=== PATIENT | male | born 1945 | race Caucasian/White ===

== ENCOUNTER 2021-06-10 10:14 | Inpatient (IN) ==
[2021-06-10] MEDS ORDERED: Ondansetron 4 MG/2 ML VIAL IVP PRN (16:27)
[2021-06-10] MEDS ORDERED: Ipratropium/Albuterol Neb 3 ML IH PRN (16:30)
[2021-06-10] MEDS ORDERED: Nicotine 2 MG GUM BC PRN (16:37)
[2021-06-10] MEDS ORDERED: Piperacillin/Tazobactam 3.375 GM in 0.9 % Sodium Chloride Mini Bag 100 ML IVPB ONE (17:00)
[2021-06-10] MEDS: Ipratropium/Albuterol Neb 3 ML IH SCH ×3 (19:49→22:59)
[2021-06-10] MEDS: Budesonide/Formoterol 80/4.5 1 PUFF INH IH SCH (19:49)
[2021-06-10] MEDS: Acetaminophen 325 MG TABLET PO PRN (20:40)
[2021-06-10] MEDS: Gabapentin 300 MG CAPSULE PO SCH (20:40)
[2021-06-10] MEDS: Melatonin 3 MG TABLET PO PRN (20:42)
[2021-06-10] MEDS: diazePAM 5 MG TABLET PO PRN (20:42)
[2021-06-10] MEDS: Piperacillin/Tazobactam 3.375 GM in 0.9 % Sodium Chloride Mini Bag 100 ML IVPB SCH (23:30)
[2021-06-11] MEDS: Ipratropium/Albuterol Neb 3 ML IH SCH ×6 (03:49→23:42)
[2021-06-11 05:05] LABS: Red Cell Distribution Width 13.7 % (11.5-14.5)
[2021-06-11 05:07] LABS: Basophils % 0.1 %; Hematocrit 41.4 % (37.5-50.1); Hemoglobin 13.5 g/dL (12.9-16.9); Immature Granulocytes % 2.6 % (0-4); Lymphocytes # 0.7 K/mcL (0.6-4.6); Lymphocytes % 2.2 %; Mean Corpuscular HGB Conc 32.6 g/dL (31.6-35.5); Mean Corpuscular Hemoglobin 31.4 pg (28.0-33.3); Mean Corpuscular Volume 96.3 fL (83.0-100.0); Mean Platelet Volume 9.6 fL (9.4-12.4); Monocytes # 1.3 K/mcL (0.0-1.3); Monocytes % 4.3 %; Platelet Count 285 K/mcL (140-400); Segmented Neutrophils % 90.8 %
[2021-06-11] MEDS: *HR* Enoxaparin 40 MG/0.4 ML SYRINGE SQ SCH (05:11)
[2021-06-11 05:23] LABS: BUN/Creatinine Ratio 44 (6-26); Blood Urea Nitrogen 25 mg/dL (8-23); Calcium 8.6 mg/dL (8.6-10.3); Carbon Dioxide 29 mEq/L (23-29); Chloride 108 mEq/L (98-107); Glucose 139 mg/dL (70-105); Magnesium 1.9 mg/dL (1.6-2.6); Osmolality,Calculated 303 (280-300); Phosphorous 3.6 mg/dL (2.7-4.5); Sodium 143 mEq/L (136-145); eGFR For African Americans > 60 (> 60); eGFR For Non-African Americans > 60 (> 60)
[2021-06-11 05:28] LABS: Neutrophils # 28.2 K/mcL (1.6-8.9)
[2021-06-11 05:46] LABS: Platelet Estimate Normal (Normal)
[2021-06-11] MEDS: Budesonide/Formoterol 80/4.5 1 PUFF INH IH SCH ×2 (08:05→20:48)
[2021-06-11] MEDS: Aspirin Enteric Coated 81 MG Tablet PO SCH (09:13)
[2021-06-11] MEDS: Piperacillin/Tazobactam 3.375 GM in 0.9 % Sodium Chloride Mini Bag 100 ML IVPB SCH ×2 (09:13→22:23)
[2021-06-11] MEDS: Gabapentin 300 MG CAPSULE PO SCH ×3 (09:18→21:30)
[2021-06-11] MEDS: Nicotine 14 MG PATCH.TD24 TD SCH (09:19)
[2021-06-11] MEDS: predniSONE 20 MG TABLET PO SCH (09:19)
[2021-06-11] MEDS: Azithromycin 250 MG TABLET PO SCH (09:19)
[2021-06-11] MEDS: amLODIPine 5 MG TABLET PO SCH (09:19)
[2021-06-11] MEDS ORDERED: *HR* FentaNYL (PF) 100 MCG/2 ML VIAL ONE (10:46)
[2021-06-11] MEDS ORDERED: Lidocaine -MPF 2% 5 ML VIAL ONE (10:46)
[2021-06-11] MEDS ORDERED: Ondansetron 4 MG/2 ML VIAL ONE (10:46)
[2021-06-11] MEDS ORDERED: Lidocaine -MPF 4% 5 ML AMPUL ONE (10:54)
[2021-06-11] MEDS ORDERED: Ipratropium/Albuterol Neb 3 ML IH ONE (11:34)
[2021-06-11] MEDS: Acetaminophen 325 MG TABLET PO PRN ×2 (14:23→21:30)
[2021-06-11 16:46] LABS: Appearance of Body Fluid Hazy (Clear); Volume of Body Fluid 30 mL
[2021-06-11] MEDS: Melatonin 3 MG TABLET PO PRN (21:29)
[2021-06-11] MEDS: diazePAM 5 MG TABLET PO PRN (21:30)
[2021-06-12] MEDS: Ipratropium/Albuterol Neb 3 ML IH SCH ×6 (04:14→23:30)
[2021-06-12] MEDS: *HR* Enoxaparin 40 MG/0.4 ML SYRINGE SQ SCH (05:35)
[2021-06-12] MEDS: Piperacillin/Tazobactam 3.375 GM in 0.9 % Sodium Chloride Mini Bag 100 ML IVPB SCH ×4 (05:35→22:00)
[2021-06-12 06:39] LABS: Mean Platelet Volume 9.2 fL (9.4-12.4); Red Cell Distribution Width 13.8 % (11.5-14.5)
[2021-06-12 06:41] LABS: Hematocrit 42.9 % (37.5-50.1); Mean Corpuscular HGB Conc 32.6 g/dL (31.6-35.5); Mean Corpuscular Hemoglobin 31.7 pg (28.0-33.3); Mean Corpuscular Volume 97.1 fL (83.0-100.0); Platelet Count 269 K/mcL (140-400); Red Blood Count 4.42 M/mcL (4.19-5.50); White Blood Count 26.3 K/mcL (4.3-11.1)
[2021-06-12 07:00] LABS: BUN/Creatinine Ratio 40 (6-26); Blood Urea Nitrogen 23 mg/dL (8-23); Calcium 8.6 mg/dL (8.6-10.3); Carbon Dioxide 34 mEq/L (23-29); Chloride 104 mEq/L (98-107); Glucose 113 mg/dL (70-105); Osmolality,Calculated 296 (280-300); Sodium 141 mEq/L (136-145); eGFR For African Americans > 60 (> 60); eGFR For Non-African Americans > 60 (> 60)
[2021-06-12] MEDS: Budesonide/Formoterol 80/4.5 1 PUFF INH IH SCH ×2 (07:47→20:00)
[2021-06-12] MEDS: Aspirin Enteric Coated 81 MG Tablet PO SCH (09:17)
[2021-06-12] MEDS: Gabapentin 300 MG CAPSULE PO SCH ×3 (09:17→22:00)
[2021-06-12] MEDS: predniSONE 20 MG TABLET PO SCH (09:17)
[2021-06-12] MEDS: Azithromycin 250 MG TABLET PO SCH (09:18)
[2021-06-12] MEDS: amLODIPine 5 MG TABLET PO SCH (09:18)
[2021-06-12] MEDS: diazePAM 5 MG TABLET PO PRN ×2 (09:18→22:00)
[2021-06-12] MEDS: Nicotine 14 MG PATCH.TD24 TD SCH (09:18)
[2021-06-12] MEDS: Acetaminophen 325 MG TABLET PO PRN (16:00)
[2021-06-12] MEDS: Melatonin 3 MG TABLET PO PRN (22:00)
[2021-06-13] MEDS: Ipratropium/Albuterol Neb 3 ML IH SCH ×5 (04:08→21:03)
[2021-06-13] MEDS: Piperacillin/Tazobactam 3.375 GM in 0.9 % Sodium Chloride Mini Bag 100 ML IVPB SCH (05:54)
[2021-06-13] MEDS: *HR* Enoxaparin 40 MG/0.4 ML SYRINGE SQ SCH (05:56)
[2021-06-13] MEDS: Budesonide/Formoterol 80/4.5 1 PUFF INH IH SCH ×2 (07:26→21:02)
[2021-06-13] MEDS: Gabapentin 300 MG CAPSULE PO SCH ×3 (08:55→20:19)
[2021-06-13] MEDS: Furosemide 20 MG/2 ML VIAL IVP SCH ×2 (08:55→16:31)
[2021-06-13] MEDS: amLODIPine 5 MG TABLET PO SCH (08:55)
[2021-06-13] MEDS: Nicotine 14 MG PATCH.TD24 TD SCH (08:56)
[2021-06-13] MEDS: predniSONE 20 MG TABLET PO SCH (08:56)
[2021-06-13] MEDS: Aspirin Enteric Coated 81 MG Tablet PO SCH (08:56)
[2021-06-13] MEDS: Azithromycin 250 MG TABLET PO SCH (08:56)
[2021-06-13 10:11] LABS: Hematocrit 44.5 % (37.5-50.1); Hemoglobin 14.1 g/dL (12.9-16.9); Mean Corpuscular HGB Conc 31.7 g/dL (31.6-35.5); Mean Corpuscular Hemoglobin 30.7 pg (28.0-33.3); Mean Corpuscular Volume 96.9 fL (83.0-100.0); Mean Platelet Volume 9.5 fL (9.4-12.4); Platelet Count 283 K/mcL (140-400); Red Blood Count 4.59 M/mcL (4.19-5.50); Red Cell Distribution Width 13.8 % (11.5-14.5); White Blood Count 23.2 K/mcL (4.3-11.1)
[2021-06-13 10:28] LABS: BUN/Creatinine Ratio 38 (6-26); Blood Urea Nitrogen 20 mg/dL (8-23); Calcium 8.9 mg/dL (8.6-10.3); Carbon Dioxide 36 mEq/L (23-29); Chloride 98 mEq/L (98-107); Glucose 86 mg/dL (70-105); Osmolality,Calculated 292 (280-300); Potassium 3.6 mEq/L (3.5-5.1); Sodium 140 mEq/L (136-145); eGFR For African Americans > 60 (> 60); eGFR For Non-African Americans > 60 (> 60)
[2021-06-13] MEDS: Acetaminophen 325 MG TABLET PO PRN ×2 (11:14→20:20)
[2021-06-13] MEDS: levoFLOXacin 750 MG/150 ML 750 MG/150 ML BAG IVPB SCH (14:08)
[2021-06-13 15:51] LABS: Adenovirus Not Detected (Not Detect); Bordetella Pertussis Not Detected (Not Detect); Chlamydophila pneumoniae Not Detected (Not Detect); Coronavirus 229E Not Detected (Not Detect); Coronavirus HKU1 Not Detected (Not Detect); Coronavirus NL63 Not Detected (Not Detect); Coronavirus OC43 Not Detected (Not Detect); Human Metapneumovirus Not Detected (Not Detect); Human Rhinovirus/Enterovirus Not Detected (Not Detect); Influenza A Subtype 2009 H1 Not Detected (Not Detect); Influenza B Not Detected (Not Detect); Mycoplasma pneumoniae Not Detected (Not Detect); Parainfluenza Virus 1 Not Detected (Not Detect); Parainfluenza Virus 2 Not Detected (Not Detect); Parainfluenza Virus 3 Not Detected (Not Detect); Parainfluenza Virus 4 Not Detected (Not Detect); Respiratory Syncytial Virus Not Detected (Not Detect); SARS-CoV-2 Not Detected (Not Detect)
[2021-06-13] MEDS: Piperacillin/Tazobactam 4.5 GM in 0.9 % Sodium Chloride Mini Bag 100 ML IVPB SCH (16:32)
[2021-06-13] MEDS: Melatonin 3 MG TABLET PO PRN (20:20)
[2021-06-13] MEDS: diazePAM 5 MG TABLET PO PRN (20:20)
[2021-06-14] MEDS: Ipratropium/Albuterol Neb 3 ML IH SCH ×7 (00:02→23:38)
[2021-06-14] MEDS: Piperacillin/Tazobactam 4.5 GM in 0.9 % Sodium Chloride Mini Bag 100 ML IVPB SCH ×4 (01:26→23:23)
[2021-06-14] MEDS: *HR* Enoxaparin 40 MG/0.4 ML SYRINGE SQ SCH (05:36)
[2021-06-14 05:45] LABS: Hematocrit 40.5 % (37.5-50.1); Hemoglobin 13.2 g/dL (12.9-16.9); Mean Corpuscular HGB Conc 32.6 g/dL (31.6-35.5); Mean Corpuscular Hemoglobin 31.1 pg (28.0-33.3); Mean Corpuscular Volume 95.3 fL (83.0-100.0); Mean Platelet Volume 9.3 fL (9.4-12.4); Platelet Count 275 K/mcL (140-400); Red Blood Count 4.25 M/mcL (4.19-5.50); Red Cell Distribution Width 13.6 % (11.5-14.5); White Blood Count 19.9 K/mcL (4.3-11.1)
[2021-06-14 06:12] LABS: BUN/Creatinine Ratio 32 (6-26); Blood Urea Nitrogen 19 mg/dL (8-23); Calcium 8.5 mg/dL (8.6-10.3); Carbon Dioxide 41 mEq/L (23-29); Chloride 96 mEq/L (98-107); Glucose 86 mg/dL (70-105); Magnesium 1.7 mg/dL (1.6-2.6); Osmolality,Calculated 290 (280-300); Potassium 3.9 mEq/L (3.5-5.1); Sodium 139 mEq/L (136-145); eGFR For African Americans > 60 (> 60); eGFR For Non-African Americans > 60 (> 60)
[2021-06-14] MEDS: Budesonide/Formoterol 80/4.5 1 PUFF INH IH SCH ×2 (08:16→20:08)
[2021-06-14] MEDS: Furosemide 20 MG/2 ML VIAL IVP SCH ×2 (09:01→16:39)
[2021-06-14] MEDS: Nicotine 14 MG PATCH.TD24 TD SCH (09:06)
[2021-06-14] MEDS: Aspirin Enteric Coated 81 MG Tablet PO SCH (09:06)
[2021-06-14] MEDS: Gabapentin 300 MG CAPSULE PO SCH ×3 (09:07→21:04)
[2021-06-14] MEDS: amLODIPine 5 MG TABLET PO SCH (11:28)
[2021-06-14] MEDS: levoFLOXacin 750 MG/150 ML 750 MG/150 ML BAG IVPB SCH (13:42)
[2021-06-14] MEDS: Acetaminophen 325 MG TABLET PO PRN ×2 (13:54→21:03)
[2021-06-14] MEDS: Piperacillin/Tazobactam 3.375 GM in 0.9 % Sodium Chloride Mini Bag 100 ML IVPB SCH (19:26)
[2021-06-14] MEDS: diazePAM 5 MG TABLET PO PRN (21:05)
[2021-06-14] MEDS: Chlorhexidine Rinse 15 ML MOUTHWASH MM SCH (23:23)
[2021-06-14] MEDS: Stomatitis Mixture 5 ML UDC PO SCH (23:23)
[2021-06-15 01:15] LABS: Basophils # 0.1 K/mcL (0.0-0.2); Basophils % 0.6 %; Eosinophils # 0.1 K/mcL (0.0-0.6); Eosinophils % 0.8 %; Hematocrit 41.8 % (37.5-50.1); Hemoglobin 13.9 g/dL (12.9-16.9); Immature Granulocytes % 5.2 % (0-4); Lymphocytes # 1.4 K/mcL (0.6-4.6); Lymphocytes % 8.1 %; Mean Corpuscular HGB Conc 33.3 g/dL (31.6-35.5); Mean Corpuscular Hemoglobin 31.2 pg (28.0-33.3); Mean Corpuscular Volume 93.7 fL (83.0-100.0); Mean Platelet Volume 9.1 fL (9.4-12.4); Monocytes # 1.1 K/mcL (0.0-1.3); Monocytes % 6.2 %; Platelet Count 283 K/mcL (140-400); Red Blood Count 4.46 M/mcL (4.19-5.50); Red Cell Distribution Width 13.7 % (11.5-14.5); Segmented Neutrophils % 79.1 %; White Blood Count 17.7 K/mcL (4.3-11.1)
[2021-06-15 01:15] LABS: VBG HCO3 39 mEq/L (21-27); VBG PCO2 57 mmHg (41-51); VBG PH 7.44 pH Units (7.32-7.42); VBG PO2 102 mmHg (25-50)
[2021-06-15 01:39] LABS: BUN/Creatinine Ratio 29 (6-26); Blood Urea Nitrogen 19 mg/dL (8-23); Calcium 8.5 mg/dL (8.6-10.3); Carbon Dioxide 41 mEq/L (23-29); Chloride 93 mEq/L (98-107); Glucose 97 mg/dL (70-105); Magnesium 1.7 mg/dL (1.6-2.6); Osmolality,Calculated 290 (280-300); Phosphorous 3.5 mg/dL (2.7-4.5); Potassium 3.8 mEq/L (3.5-5.1); Sodium 139 mEq/L (136-145); eGFR For African Americans > 60 (> 60); eGFR For Non-African Americans > 60 (> 60)
[2021-06-15] MEDS: Ipratropium/Albuterol Neb 3 ML IH SCH ×6 (03:25→23:03)
[2021-06-15] MEDS: *HR* Enoxaparin 40 MG/0.4 ML SYRINGE SQ SCH (05:27)
[2021-06-15] MEDS: Budesonide/Formoterol 80/4.5 1 PUFF INH IH SCH ×3 (07:36→20:16)
[2021-06-15] MEDS: Furosemide 20 MG/2 ML VIAL IVP SCH (08:30)
[2021-06-15] MEDS: amLODIPine 5 MG TABLET PO SCH (08:31)
[2021-06-15] MEDS: Aspirin Enteric Coated 81 MG Tablet PO SCH (08:31)
[2021-06-15] MEDS: Gabapentin 300 MG CAPSULE PO SCH ×3 (08:31→20:30)
[2021-06-15] MEDS: Chlorhexidine Rinse 15 ML MOUTHWASH MM SCH ×2 (08:31→20:30)
[2021-06-15] MEDS: Piperacillin/Tazobactam 4.5 GM in 0.9 % Sodium Chloride Mini Bag 100 ML IVPB SCH (08:31)
[2021-06-15] MEDS: Nicotine 14 MG PATCH.TD24 TD SCH (08:32)
[2021-06-15] MEDS: Stomatitis Mixture 5 ML UDC PO SCH ×4 (11:18→20:34)
[2021-06-15] MEDS: Nystatin SUSP 5 ML UD.LIQ PO SCH ×3 (13:54→20:30)
[2021-06-15] MEDS ORDERED: 0.9 % Sodium Chloride 500 ML IVC ONE (14:19)
[2021-06-15] MEDS: Piperacillin/Tazobactam 3.375 GM in 0.9 % Sodium Chloride Mini Bag 100 ML IVPB SCH ×2 (15:38→23:24)
[2021-06-15] MEDS: Acetaminophen 325 MG TABLET PO PRN (20:30)
[2021-06-15] MEDS: diazePAM 5 MG TABLET PO PRN (20:30)
[2021-06-16 02:36] LABS: Hematocrit 43.6 % (37.5-50.1); Hemoglobin 13.6 g/dL (12.9-16.9); Mean Corpuscular HGB Conc 31.2 g/dL (31.6-35.5); Mean Corpuscular Hemoglobin 29.9 pg (28.0-33.3); Mean Corpuscular Volume 95.8 fL (83.0-100.0); Mean Platelet Volume 9.3 fL (9.4-12.4); Platelet Count 288 K/mcL (140-400); Red Blood Count 4.55 M/mcL (4.19-5.50); Red Cell Distribution Width 13.8 % (11.5-14.5); White Blood Count 14.5 K/mcL (4.3-11.1)
[2021-06-16 02:54] LABS: BUN/Creatinine Ratio 25 (6-26); Blood Urea Nitrogen 17 mg/dL (8-23); Calcium 8.5 mg/dL (8.6-10.3); Carbon Dioxide 38 mEq/L (23-29); Chloride 97 mEq/L (98-107); Glucose 88 mg/dL (70-105); Osmolality,Calculated 291 (280-300); Potassium 3.7 mEq/L (3.5-5.1); Sodium 140 mEq/L (136-145); eGFR For African Americans > 60 (> 60); eGFR For Non-African Americans > 60 (> 60)
[2021-06-16] MEDS: Ipratropium/Albuterol Neb 3 ML IH SCH ×6 (04:09→23:10)
[2021-06-16] MEDS: Budesonide/Formoterol 80/4.5 1 PUFF INH IH SCH ×2 (07:28→20:24)
[2021-06-16] MEDS: Aspirin Enteric Coated 81 MG Tablet PO SCH (08:22)
[2021-06-16] MEDS: Nystatin SUSP 5 ML UD.LIQ PO SCH ×4 (08:22→19:46)
[2021-06-16] MEDS: Piperacillin/Tazobactam 3.375 GM in 0.9 % Sodium Chloride Mini Bag 100 ML IVPB SCH ×2 (08:22→15:31)
[2021-06-16] MEDS: Gabapentin 300 MG CAPSULE PO SCH ×3 (08:22→19:46)
[2021-06-16] MEDS: Chlorhexidine Rinse 15 ML MOUTHWASH MM SCH ×2 (08:22→19:46)
[2021-06-16] MEDS: Nicotine 14 MG PATCH.TD24 TD SCH (08:22)
[2021-06-16] MEDS: amLODIPine 5 MG TABLET PO SCH (08:22)
[2021-06-16] MEDS: *HR* Enoxaparin 40 MG/0.4 ML SYRINGE SQ SCH (08:24)
[2021-06-16] MEDS: Acetaminophen 325 MG TABLET PO PRN ×2 (11:30→19:46)
[2021-06-16] MEDS: Stomatitis Mixture 5 ML UDC PO SCH ×4 (11:40→19:46)
[2021-06-16] MEDS: diazePAM 5 MG TABLET PO PRN (19:45)
[2021-06-17] MEDS: Piperacillin/Tazobactam 3.375 GM in 0.9 % Sodium Chloride Mini Bag 100 ML IVPB SCH ×3 (00:34→17:01)
[2021-06-17] MEDS: Ipratropium/Albuterol Neb 3 ML IH SCH ×6 (03:35→23:53)
[2021-06-17] MEDS: *HR* Enoxaparin 40 MG/0.4 ML SYRINGE SQ SCH ×2 (05:47→14:58)
[2021-06-17 07:29] LABS: Basophils # 0.1 K/mcL (0.0-0.2); Basophils % 0.5 %; Eosinophils # 0.3 K/mcL (0.0-0.6); Eosinophils % 2.2 %; Hematocrit 42.4 % (37.5-50.1); Hemoglobin 13.3 g/dL (12.9-16.9); Lymphocytes # 1.1 K/mcL (0.6-4.6); Lymphocytes % 7.5 %; Mean Corpuscular HGB Conc 31.4 g/dL (31.6-35.5); Mean Corpuscular Hemoglobin 30.2 pg (28.0-33.3); Mean Corpuscular Volume 96.1 fL (83.0-100.0); Mean Platelet Volume 9.4 fL (9.4-12.4); Monocytes # 1.1 K/mcL (0.0-1.3); Monocytes % 7.4 %; Neutrophils # 11.5 K/mcL (1.6-8.9); Platelet Count 314 K/mcL (140-400); Red Blood Count 4.41 M/mcL (4.19-5.50); Red Cell Distribution Width 13.8 % (11.5-14.5); Segmented Neutrophils % 78.4 %; White Blood Count 14.7 K/mcL (4.3-11.1)
[2021-06-17] MEDS: Budesonide/Formoterol 80/4.5 1 PUFF INH IH SCH ×2 (07:51→20:42)
[2021-06-17 08:18] LABS: BUN/Creatinine Ratio 23 (6-26); Blood Urea Nitrogen 17 mg/dL (8-23); Calcium 8.8 mg/dL (8.6-10.3); Carbon Dioxide 31 mEq/L (23-29); Chloride 100 mEq/L (98-107); Glucose 91 mg/dL (70-105); Osmolality,Calculated 289 (280-300); Sodium 139 mEq/L (136-145); eGFR For African Americans > 60 (> 60); eGFR For Non-African Americans > 60 (> 60)
[2021-06-17] MEDS: amLODIPine 5 MG TABLET PO SCH (08:50)
[2021-06-17] MEDS: Aspirin Enteric Coated 81 MG Tablet PO SCH (08:50)
[2021-06-17] MEDS: Gabapentin 300 MG CAPSULE PO SCH ×3 (08:50→21:24)
[2021-06-17] MEDS: Stomatitis Mixture 5 ML UDC PO SCH ×4 (08:51→21:30)
[2021-06-17] MEDS: Chlorhexidine Rinse 15 ML MOUTHWASH MM SCH ×2 (08:51→21:24)
[2021-06-17] MEDS: Nystatin SUSP 5 ML UD.LIQ PO SCH ×4 (08:51→21:24)
[2021-06-17] MEDS: Nicotine 14 MG PATCH.TD24 TD SCH (08:51)
[2021-06-17] MEDS ORDERED: TELMISARTAN 40 MG PO SCH (13:45)
[2021-06-17] MEDS ORDERED: E-Z-HD (BARIUM SULF) SUSPENSION PO ONE (15:21)
[2021-06-17] MEDS ORDERED: E-Z-PAQUE (BARIUM SULF) SUSP 1 BOTTLE PO ONE (15:21)
[2021-06-17] MEDS: Acetaminophen 325 MG TABLET PO PRN (17:07)
[2021-06-17] MEDS: diazePAM 5 MG TABLET PO PRN (17:07)
[2021-06-17] MEDS: Melatonin 3 MG TABLET PO PRN (21:24)
[2021-06-18] MEDS: Piperacillin/Tazobactam 3.375 GM in 0.9 % Sodium Chloride Mini Bag 100 ML IVPB SCH ×3 (00:58→16:33)
[2021-06-18] MEDS: Ipratropium/Albuterol Neb 3 ML IH SCH ×5 (04:13→20:09)
[2021-06-18 06:18] LABS: Basophils # 0.1 K/mcL (0.0-0.2); Basophils % 0.4 %; Eosinophils # 0.4 K/mcL (0.0-0.6); Eosinophils % 2.2 %; Hematocrit 42.9 % (37.5-50.1); Hemoglobin 13.7 g/dL (12.9-16.9); Immature Granulocytes % 3.1 % (0-4); Lymphocytes % 6.3 %; Mean Corpuscular HGB Conc 31.9 g/dL (31.6-35.5); Mean Corpuscular Hemoglobin 30.4 pg (28.0-33.3); Mean Corpuscular Volume 95.3 fL (83.0-100.0); Mean Platelet Volume 9.2 fL (9.4-12.4); Monocytes # 1.2 K/mcL (0.0-1.3); Monocytes % 7.1 %; Platelet Count 346 K/mcL (140-400); Red Cell Distribution Width 13.9 % (11.5-14.5); Segmented Neutrophils % 80.9 %; White Blood Count 16.1 K/mcL (4.3-11.1)
[2021-06-18 06:35] LABS: BUN/Creatinine Ratio 23 (6-26); Blood Urea Nitrogen 16 mg/dL (8-23); Calcium 8.8 mg/dL (8.6-10.3); Carbon Dioxide 33 mEq/L (23-29); Chloride 102 mEq/L (98-107); Glucose 95 mg/dL (70-105); Osmolality,Calculated 289 (280-300); Potassium 4.2 mEq/L (3.5-5.1); Sodium 139 mEq/L (136-145); eGFR For African Americans > 60 (> 60); eGFR For Non-African Americans > 60 (> 60)
[2021-06-18] MEDS: Nystatin SUSP 5 ML UD.LIQ PO SCH ×5 (08:24→22:27)
[2021-06-18] MEDS: Stomatitis Mixture 5 ML UDC PO SCH ×4 (08:24→22:29)
[2021-06-18] MEDS: Chlorhexidine Rinse 15 ML MOUTHWASH MM SCH ×2 (09:29→22:28)
[2021-06-18] MEDS: Nicotine 14 MG PATCH.TD24 TD SCH (09:29)
[2021-06-18] MEDS: Aspirin Enteric Coated 81 MG Tablet PO SCH (09:30)
[2021-06-18] MEDS: amLODIPine 5 MG TABLET PO SCH (09:30)
[2021-06-18] MEDS: Gabapentin 300 MG CAPSULE PO SCH ×3 (09:30→22:28)
[2021-06-18] MEDS: Budesonide/Formoterol 80/4.5 1 PUFF INH IH SCH ×2 (10:36→20:11)
[2021-06-18] MEDS: Melatonin 3 MG TABLET PO PRN (22:28)
[2021-06-18] MEDS: Acetaminophen 325 MG TABLET PO PRN (22:28)
[2021-06-18] MEDS: diazePAM 5 MG TABLET PO PRN (22:28)
[2021-06-19] MEDS: Ipratropium/Albuterol Neb 3 ML IH SCH ×4 (00:17→12:22)
[2021-06-19] MEDS: Piperacillin/Tazobactam 3.375 GM in 0.9 % Sodium Chloride Mini Bag 100 ML IVPB SCH ×2 (01:20→10:12)
[2021-06-19] MEDS: *HR* Enoxaparin 40 MG/0.4 ML SYRINGE SQ SCH (06:13)
[2021-06-19] MEDS: Budesonide/Formoterol 80/4.5 1 PUFF INH IH SCH (08:47)
[2021-06-19] MEDS: amLODIPine 5 MG TABLET PO SCH (10:06)
[2021-06-19] MEDS: Gabapentin 300 MG CAPSULE PO SCH (10:06)
[2021-06-19] MEDS: Nicotine 14 MG PATCH.TD24 TD SCH (10:07)
[2021-06-19] MEDS: Aspirin Enteric Coated 81 MG Tablet PO SCH (10:07)
[2021-06-19] MEDS: Nystatin SUSP 5 ML UD.LIQ PO SCH ×2 (10:07→14:06)
[2021-06-19] MEDS: Chlorhexidine Rinse 15 ML MOUTHWASH MM SCH (10:07)
[2021-06-19] MEDS: Stomatitis Mixture 5 ML UDC PO SCH ×2 (10:08→14:06)
[2021-06-19] MEDS: Acetaminophen 325 MG TABLET PO PRN (10:19)
[2021-06-19 11:16] VITALS: BP 142/59; PULSE 79; TEMP 98.2
[2021-06-19 12:41] VITALS: O2SAT 92
[2021-06-19] MEDS ORDERED: FLU Vac QV 21-22 (6Month+)/PF 0.5 ML SYRINGE IM ONE (13:56)
== END 2021-06-19 15:20 | disposition home or self-care (01) | DRG 853 ==
LOC: 2NENU → SUATTDRO 16:44
PROVIDERS: ADMIT Internal Medicine; ATTEND Family Medicine
PROC: ENDOLBX (2021-06-11 12:00)
PROC: ENDOEDS (2021-06-18 09:05)

== ENCOUNTER 2022-04-27 03:48 | Inpatient (IN) ==
[2022-04-27] MEDS ORDERED: 0.9 % Sodium Chloride 1,000 ML IVC ONE (04:06)
[2022-04-27] MEDS ORDERED: Ipratropium/Albuterol Neb 3 ML IH ONE (04:07)
[2022-04-27 04:30] LABS: Basophils % 0.2 %; Eosinophils # 0.1 K/mcL (0.0-0.6); Eosinophils % 0.5 %; Hemoglobin 13.7 g/dL (12.9-16.9); Immature Granulocytes % 0.8 % (0-4); Lymphocytes # 0.8 K/mcL (0.6-4.6); Mean Corpuscular HGB Conc 32.6 g/dL (31.6-35.5); Mean Corpuscular Hemoglobin 30.2 pg (28.0-33.3); Mean Corpuscular Volume 92.5 fL (83.0-100.0); Mean Platelet Volume 9.5 fL (9.4-12.4); Monocytes # 1.1 K/mcL (0.0-1.3); Monocytes % 5.6 %; Neutrophils # 17.8 K/mcL (1.6-8.9); Platelet Count 285 K/mcL (140-400); Red Blood Count 4.54 M/mcL (4.19-5.50); Segmented Neutrophils % 88.9 %
[2022-04-27 04:53] LABS: Calcium 8.4 mg/dL (8.6-10.3); Magnesium 1.6 mg/dL (1.6-2.6); Potassium 4.1 mEq/L (3.5-5.1)
[2022-04-27 04:54] LABS: Troponin I 0.03 ng/mL (< 0.04)
[2022-04-27 04:59] LABS: Influenza A PCR Negative (Negative); Influenza B PCR Negative (Negative); Resp. Syncytial Virus PCR Negative (Negative)
[2022-04-27 05:06] LABS: SARS-CoV-2 by PCR (In House) Negative (Negative)
[2022-04-27] MEDS ORDERED: Azithromycin 500 MG in 0.9 % Sodium Chloride 250 ML IVPB ONE (05:17)
[2022-04-27] MEDS: cefTRIAXone 1,000 MG in Water for inj. (sterile) 10 ML IVP ONE ×2 (05:26→06:51)
[2022-04-27] MEDS ORDERED: Cefepime HCl 1,000 MG in 0.9 % Sodium Chloride 10 ML IVP ONE (05:28)
[2022-04-27] MEDS ORDERED: Ipratropium/Albuterol Neb 3 ML IH PRN (07:39)
[2022-04-27] MEDS ORDERED: Ondansetron 4 MG/2 ML VIAL IVP PRN (07:40)
[2022-04-27] MEDS ORDERED: Tiotropium 10 INH DOSE IH ONE (08:09)
[2022-04-27] MEDS: Budesonide/Formoterol 80/4.5 1 PUFF INH IH SCH ×2 (08:11→20:01)
[2022-04-27] MEDS: Tiotropium 10 INH DOSE IH SCH (08:11)
[2022-04-27] MEDS: Cefepime HCl 2,000 MG in 0.9 % Sodium Chloride 10 ML IVP SCH ×2 (09:27→17:00)
[2022-04-27] MEDS: Gabapentin 300 MG CAPSULE PO SCH ×3 (09:29→19:50)
[2022-04-27] MEDS: Aspirin Enteric Coated 81 MG Tablet PO SCH (09:29)
[2022-04-27] MEDS ORDERED: Iopamidol - 370 500 ML MLS IVP ONE (09:41)
[2022-04-27 14:44] LABS: Bilirubin,Urine Negative (Negative); Blood,Urine Negative (Negative); Clarity,Urine Clear (Clear); Color,Urine Light-Yellow (Yellow); Glucose,Urine (UA) Normal (Normal); Ketones,Urine Negative (Negative); Leukocyte Esterase,Urine Negative (Negative); Mucus,Urine Few per lpf (None-Few); Nitrite,Urine Negative (Negative); PH,Urine 6.5 pH Units (5.0-8.0); Protein,Urine Trace mg/dL (Neg-Trace); RBC,Urine 0-3 per hpf (0-3); Specific Gravity,Urine > 1.030 (1.010-1.025); Squamous Epithelial Cell,Urine Few per hpf (None-Few); Urobilinogen,Urine Normal (Normal)
[2022-04-27] MEDS: Acetaminophen 325 MG TABLET PO PRN (16:59)
[2022-04-27] MEDS: Melatonin 3 MG TABLET PO PRN (19:50)
[2022-04-27] MEDS ORDERED: Ibuprofen 400 MG TABLET PO ONE (19:58)
[2022-04-28 03:22] LABS: Hematocrit 42.2 % (37.5-50.1); Hemoglobin 13.5 g/dL (12.9-16.9); Mean Corpuscular Hemoglobin 30.5 pg (28.0-33.3); Mean Corpuscular Volume 95.3 fL (83.0-100.0); Mean Platelet Volume 9.2 fL (9.4-12.4); Platelet Count 274 K/mcL (140-400); Red Blood Count 4.43 M/mcL (4.19-5.50); Red Cell Distribution Width 13.9 % (11.5-14.5); White Blood Count 13.4 K/mcL (4.3-11.1)
[2022-04-28] MEDS: Cefepime HCl 2,000 MG in 0.9 % Sodium Chloride 10 ML IVP SCH ×2 (03:29→09:12)
[2022-04-28] MEDS: Nystatin POWDER 30 GM BOTTLE TP SCH ×4 (03:30→20:52)
[2022-04-28 03:43] LABS: BUN/Creatinine Ratio 18 (6-26); Blood Urea Nitrogen 14 mg/dL (8-23); Calcium 8.5 mg/dL (8.6-10.3); Carbon Dioxide 28 mEq/L (23-29); Chloride 106 mEq/L (98-107); Glucose 96 mg/dL (70-105); Magnesium 1.9 mg/dL (1.6-2.6); Osmolality,Calculated 288 (280-300); Phosphorous 3.6 mg/dL (2.7-4.5); Potassium 4.1 mEq/L (3.5-5.1); Sodium 139 mEq/L (136-145)
[2022-04-28] MEDS: *HR* Enoxaparin 40 MG/0.4 ML SYRINGE SQ SCH (06:06)
[2022-04-28] MEDS: Tiotropium 10 INH DOSE IH SCH (07:53)
[2022-04-28] MEDS: Budesonide/Formoterol 80/4.5 1 PUFF INH IH SCH ×2 (07:54→20:15)
[2022-04-28] MEDS: Azithromycin 250 MG TABLET PO SCH (09:14)
[2022-04-28] MEDS: Aspirin Enteric Coated 81 MG Tablet PO SCH (09:15)
[2022-04-28] MEDS: Gabapentin 300 MG CAPSULE PO SCH ×3 (09:16→20:52)
[2022-04-28] MEDS ORDERED: Lidocaine HCL 4 ML Topical Solution (Laryng-O-Jet Kit Sterile Pak) TP ONE (13:14)
[2022-04-28] MEDS ORDERED: Ondansetron 4 MG/2 ML VIAL ONE (13:14)
[2022-04-28] MEDS ORDERED: Lidocaine -MPF 2% 2 ML VIAL ONE ×2 (13:14→13:16)
[2022-04-28] MEDS ORDERED: *HR* Propofol 200 MG/20 ML VIAL IVP ONE (13:14)
[2022-04-28] MEDS ORDERED: *HR* FentaNYL (PF) 100 MCG/2 ML VIAL ONE (13:17)
[2022-04-28] MEDS ORDERED: Ipratropium/Albuterol Neb 3 ML IH ONE (13:51)
[2022-04-28] MEDS ORDERED: Ipratropium/Albuterol Neb 3 ML ONE (13:53)
[2022-04-28] MEDS ORDERED: Ondansetron 4 MG/2 ML VIAL IVP PRN (14:12)
[2022-04-28] MEDS ORDERED: Albuterol 2.5 MG/3 ML NEBULIZER IH PRN (14:12)
[2022-04-28] MEDS: Dextroamphetamine/Amphetamine [Adderall 20 Mg Tablet] PO SCH ×2 (14:32→20:53)
[2022-04-28] MEDS: Acetaminophen 325 MG TABLET PO PRN (14:52)
[2022-04-28] MEDS ORDERED: 0.9 % Sodium Chloride Mini Bag 100 ML ONE (15:32)
[2022-04-28] MEDS: Piperacillin/Tazobactam 3.375 GM in 0.9 % Sodium Chloride Mini Bag 100 ML IVPB SCH ×2 (15:50→23:19)
[2022-04-28] MEDS: Melatonin 3 MG TABLET PO PRN (20:51)
[2022-04-29 03:21] LABS: Basophils # 0.1 K/mcL (0.0-0.2); Basophils % 0.8 %; Eosinophils # 0.5 K/mcL (0.0-0.6); Eosinophils % 4.5 %; Hematocrit 40.4 % (37.5-50.1); Hemoglobin 12.9 g/dL (12.9-16.9); Immature Granulocytes % 1.3 % (0-4); Lymphocytes # 1.2 K/mcL (0.6-4.6); Lymphocytes % 10.9 %; Mean Corpuscular HGB Conc 31.9 g/dL (31.6-35.5); Mean Corpuscular Hemoglobin 30.1 pg (28.0-33.3); Mean Corpuscular Volume 94.2 fL (83.0-100.0); Mean Platelet Volume 9.6 fL (9.4-12.4); Monocytes # 0.9 K/mcL (0.0-1.3); Monocytes % 8.6 %; Neutrophils # 7.8 K/mcL (1.6-8.9); Platelet Count 256 K/mcL (140-400); Red Blood Count 4.29 M/mcL (4.19-5.50); Red Cell Distribution Width 13.6 % (11.5-14.5); Segmented Neutrophils % 73.9 %; White Blood Count 10.6 K/mcL (4.3-11.1)
[2022-04-29 03:37] LABS: BUN/Creatinine Ratio 18 (6-26); Blood Urea Nitrogen 13 mg/dL (8-23); Calcium 8.8 mg/dL (8.6-10.3); Carbon Dioxide 28 mEq/L (23-29); Chloride 104 mEq/L (98-107); Glucose 84 mg/dL (70-105); Magnesium 1.8 mg/dL (1.6-2.6); Osmolality,Calculated 283 (280-300); Phosphorous 4.3 mg/dL (2.7-4.5); Potassium 4.4 mEq/L (3.5-5.1); Sodium 137 mEq/L (136-145)
[2022-04-29] MEDS: *HR* Enoxaparin 40 MG/0.4 ML SYRINGE SQ SCH (05:31)
[2022-04-29] MEDS: Tiotropium 10 INH DOSE IH SCH (07:25)
[2022-04-29] MEDS: Budesonide/Formoterol 80/4.5 1 PUFF INH IH SCH ×2 (07:25→22:03)
[2022-04-29] MEDS: Azithromycin 250 MG TABLET PO SCH (08:46)
[2022-04-29] MEDS: Aspirin Enteric Coated 81 MG Tablet PO SCH (08:47)
[2022-04-29] MEDS: Gabapentin 300 MG CAPSULE PO SCH ×3 (08:47→21:37)
[2022-04-29] MEDS: Piperacillin/Tazobactam 3.375 GM in 0.9 % Sodium Chloride Mini Bag 100 ML IVPB SCH ×2 (08:47→15:39)
[2022-04-29] MEDS: Nicotine 14 MG PATCH.TD24 TD SCH (08:48)
[2022-04-29] MEDS: Nystatin POWDER 30 GM BOTTLE TP SCH ×3 (08:51→21:38)
[2022-04-29] MEDS: Dextroamphetamine/Amphetamine [Adderall 20 Mg Tablet] PO SCH ×3 (08:53→21:38)
[2022-04-29] MEDS ORDERED: E-Z-PAQUE (BARIUM SULF) SUSP 1 BOTTLE PO ONE (17:13)
[2022-04-29] MEDS ORDERED: E-Z-HD (BARIUM SULF) SUSPENSION PO ONE (17:13)
[2022-04-29] MEDS: Melatonin 3 MG TABLET PO PRN (21:37)
[2022-04-30] MEDS: Piperacillin/Tazobactam 3.375 GM in 0.9 % Sodium Chloride Mini Bag 100 ML IVPB SCH ×4 (00:25→23:58)
[2022-04-30] MEDS: *HR* Enoxaparin 40 MG/0.4 ML SYRINGE SQ SCH (05:51)
[2022-04-30] MEDS: Budesonide/Formoterol 80/4.5 1 PUFF INH IH SCH ×2 (07:31→21:32)
[2022-04-30] MEDS: Tiotropium 10 INH DOSE IH SCH (07:31)
[2022-04-30] MEDS: Azithromycin 250 MG TABLET PO SCH (09:13)
[2022-04-30] MEDS: Gabapentin 300 MG CAPSULE PO SCH ×3 (09:13→20:48)
[2022-04-30] MEDS: Nicotine 14 MG PATCH.TD24 TD SCH (09:14)
[2022-04-30] MEDS: Aspirin Enteric Coated 81 MG Tablet PO SCH (09:14)
[2022-04-30] MEDS: Nystatin POWDER 30 GM BOTTLE TP SCH ×3 (09:29→20:49)
[2022-04-30] MEDS: Dextroamphetamine/Amphetamine [Adderall 20 Mg Tablet] PO SCH ×3 (09:29→20:43)
[2022-04-30] MEDS: Acetaminophen 325 MG TABLET PO PRN (14:45)
[2022-05-01] MEDS: *HR* Enoxaparin 40 MG/0.4 ML SYRINGE SQ SCH (05:26)
[2022-05-01] MEDS: Tiotropium 10 INH DOSE IH SCH (07:54)
[2022-05-01] MEDS: Budesonide/Formoterol 80/4.5 1 PUFF INH IH SCH ×2 (07:54→19:41)
[2022-05-01] MEDS: Piperacillin/Tazobactam 3.375 GM in 0.9 % Sodium Chloride Mini Bag 100 ML IVPB SCH ×2 (08:04→15:53)
[2022-05-01] MEDS: Aspirin Enteric Coated 81 MG Tablet PO SCH (08:05)
[2022-05-01] MEDS: Gabapentin 300 MG CAPSULE PO SCH ×3 (08:05→19:54)
[2022-05-01] MEDS: Azithromycin 250 MG TABLET PO SCH (08:05)
[2022-05-01] MEDS: Nystatin POWDER 30 GM BOTTLE TP SCH ×3 (08:06→19:55)
[2022-05-01] MEDS: Dextroamphetamine/Amphetamine [Adderall 20 Mg Tablet] PO SCH ×3 (08:06→19:55)
[2022-05-01] MEDS: Nicotine 14 MG PATCH.TD24 TD SCH (08:12)
[2022-05-01] MEDS ORDERED: *HR* Labetalol 20 MG/4 ML SYRINGE IVP ONE (21:18)
[2022-05-02] MEDS: Piperacillin/Tazobactam 3.375 GM in 0.9 % Sodium Chloride Mini Bag 100 ML IVPB SCH ×4 (00:22→23:54)
[2022-05-02] MEDS: *HR* Enoxaparin 40 MG/0.4 ML SYRINGE SQ SCH (05:23)
[2022-05-02] MEDS: Aspirin Enteric Coated 81 MG Tablet PO SCH (08:57)
[2022-05-02] MEDS: Gabapentin 300 MG CAPSULE PO SCH ×3 (08:57→20:48)
[2022-05-02] MEDS: Nicotine 14 MG PATCH.TD24 TD SCH (08:57)
[2022-05-02] MEDS: amLODIPine 5 MG TABLET PO SCH (08:57)
[2022-05-02] MEDS: Dextroamphetamine/Amphetamine [Adderall 20 Mg Tablet] PO SCH ×3 (08:58→21:05)
[2022-05-02] MEDS: Nystatin POWDER 30 GM BOTTLE TP SCH ×3 (08:58→20:49)
[2022-05-02] MEDS: Tiotropium 10 INH DOSE IH SCH (11:24)
[2022-05-02] MEDS: Budesonide/Formoterol 80/4.5 1 PUFF INH IH SCH ×2 (11:25→20:15)
[2022-05-02] MEDS: diazePAM 5 MG TABLET PO SCH ×2 (16:48→20:48)
[2022-05-03] MEDS: *HR* Enoxaparin 40 MG/0.4 ML SYRINGE SQ SCH (05:27)
[2022-05-03] MEDS: Budesonide/Formoterol 80/4.5 1 PUFF INH IH SCH ×2 (07:45→22:51)
[2022-05-03] MEDS: Tiotropium 10 INH DOSE IH SCH (07:45)
[2022-05-03] MEDS: Piperacillin/Tazobactam 3.375 GM in 0.9 % Sodium Chloride Mini Bag 100 ML IVPB SCH ×2 (09:13→16:07)
[2022-05-03] MEDS: amLODIPine 5 MG TABLET PO SCH (09:13)
[2022-05-03] MEDS: Aspirin Enteric Coated 81 MG Tablet PO SCH (09:13)
[2022-05-03] MEDS: Gabapentin 300 MG CAPSULE PO SCH ×3 (09:13→20:22)
[2022-05-03] MEDS: Nystatin POWDER 30 GM BOTTLE TP SCH ×3 (09:33→20:25)
[2022-05-03] MEDS: Dextroamphetamine/Amphetamine [Adderall 20 Mg Tablet] PO SCH ×3 (09:34→20:26)
[2022-05-03] MEDS: Nicotine 14 MG PATCH.TD24 TD SCH (10:13)
[2022-05-03] MEDS ORDERED: 0.9 % Sodium Chloride Mini Bag 100 ML ONE (15:49)
[2022-05-03] MEDS: diazePAM 5 MG TABLET PO SCH ×2 (16:06→20:22)
[2022-05-04] MEDS: Piperacillin/Tazobactam 3.375 GM in 0.9 % Sodium Chloride Mini Bag 100 ML IVPB SCH ×2 (02:40→08:11)
[2022-05-04 03:22] VITALS: TEMP 97.3; O2SAT 94
[2022-05-04] MEDS: *HR* Enoxaparin 40 MG/0.4 ML SYRINGE SQ SCH (06:12)
[2022-05-04] MEDS: Tiotropium 10 INH DOSE IH SCH (07:52)
[2022-05-04] MEDS: Budesonide/Formoterol 80/4.5 1 PUFF INH IH SCH (07:52)
[2022-05-04 08:11] VITALS: BP 126/81; PULSE 73
[2022-05-04] MEDS: Aspirin Enteric Coated 81 MG Tablet PO SCH (08:12)
[2022-05-04] MEDS: amLODIPine 5 MG TABLET PO SCH (08:12)
[2022-05-04] MEDS: Gabapentin 300 MG CAPSULE PO SCH (08:13)
[2022-05-04] MEDS ORDERED: Cefdinir 300 MG CAPSULE PO SCH (09:00)
[2022-05-04] MEDS: Nystatin POWDER 30 GM BOTTLE TP SCH (09:06)
[2022-05-04] MEDS: Nicotine 14 MG PATCH.TD24 TD SCH (09:06)
[2022-05-04] MEDS: Dextroamphetamine/Amphetamine [Adderall 20 Mg Tablet] PO SCH (09:06)
[2022-05-04] MEDS ORDERED: cefTRIAXone 1,000 MG in 0.9 % Sodium Chloride 10 ML IVP SCH (16:00)
== END 2022-05-04 10:51 | disposition home or self-care (01) | DRG 871 ==
LOC: 3BNU 03:48 → EMEROOARM 03:48 → SUATTDRO 06:36 → 3BNU 07:54 → SUATTDRO 11:01
PROVIDERS: ADMIT Internal Medicine; ATTEND Nurse Practitioner